=== PATIENT | female | born 1950 | race Caucasian/White ===

== ENCOUNTER → 2018-09-11 | Outpatient (CLI) | payer OTHER ==
[~2018-09-11] MED LIST: ALDACTONE25 MG; CARVEDILOL12.5 MG PO; FLEXERIL PO; HYDROCODONE-AP1 EAC6 PO; LISINOPRIL5 MG PO; MUCINEX TA600 MG/TA2 PO; PROAIR HFA8.5 GM INH; ZPAK PO
== END ==
LOC: M.RAD 16:44
DX: J98.11 Atelectasis (principal); J20.9 Acute bronchitis, unspecified

== ENCOUNTER → 2019-01-22 | Outpatient (CLI) | payer OTHER | LOC: M.RAD 13:30 | DX: Z12.31 Encounter for screening mammogram for malignant neoplasm of breast (principal); M81.0 Age-related osteoporosis without current pathological fracture; M85.88 Other specified disorders of bone density and structure, other site ==